=== PATIENT | female | born 2000 | race Caucasian/White ===

== ENCOUNTER 2021-02-07 09:51 | Observation (INO) ==
[2021-02-07] MEDS ORDERED: Doxycycline 100 MG in 0.9 % Sodium Chloride Mini Bag 100 ML IVPB ONE (10:38)
[2021-02-07] MEDS ORDERED: 0.9 % Sodium Chloride 1,000 ML IVC SCH (10:45)
[2021-02-07 10:50] LABS: Basophils % 0.3 %; Eosinophils # 0.1 K/mcL (0.0-0.6); Eosinophils % 0.7 %; Hematocrit 37.4 % (35.3-44.9); Hemoglobin 12.8 g/dL (11.5-15.4); Immature Granulocytes % 0.3 % (0-4); Lymphocytes # 1.6 K/mcL (0.6-4.6); Lymphocytes % 21.2 %; Mean Corpuscular HGB Conc 34.2 g/dL (31.6-35.5); Mean Corpuscular Hemoglobin 28.8 pg (28.0-33.3); Mean Platelet Volume 10.1 fL (9.4-12.4); Monocytes # 0.7 K/mcL (0.0-1.3); Monocytes % 8.9 %; Neutrophils # 5.1 K/mcL (1.6-8.9); Platelet Count 229 K/mcL (140-400); Red Blood Count 4.45 M/mcL (3.82-4.97); Red Cell Distribution Width 13.2 % (11.5-14.5); Segmented Neutrophils % 68.6 %; White Blood Count 7.4 K/mcL (4.3-11.1)
[2021-02-07 11:02] LABS: Amphetamine Screen,Urine Negative ng/mL (Cutoff=1000); Barbiturate Screen,Urine Negative ng/mL (Cutoff=200); Benzodiazepines Screen,Urine Negative ng/mL (Cutoff=200); Cannabinoid Screen,Urine Negative ng/mL (Cutoff = 50); Cocaine Screen,Urine Negative ng/mL (Cutoff= 300); Opiate Screen,Urine Negative ng/mL (Cutoff=300); Phencyclidine Screen,Urine Negative ng/mL (Cutoff=25)
[2021-02-07] MEDS ORDERED: Ondansetron 4 MG/2 ML VIAL IVP PRN (12:10)
[2021-02-07] MEDS ORDERED: *HR* OxyCODONE Immed Rel 5 MG TABLET PO PRN (12:10)
[2021-02-07] MEDS ORDERED: *HR* Propofol 200 MG/20 ML VIAL IVP ONE (12:14)
[2021-02-07] MEDS ORDERED: Acetaminophen IV 1,000 MG/100 ML BAG IVPB ONE (12:15)
[2021-02-07] MEDS ORDERED: *HR* FentaNYL (PF) 100 MCG/2 ML VIAL ONE (12:15)
[2021-02-07] MEDS ORDERED: *HR* Midazolam HCl 2 MG/2 ML VIAL ONE (12:15)
[2021-02-07] MEDS ORDERED: Ketorolac 30 MG/ML VIAL ONE (12:16)
[2021-02-07] MEDS ORDERED: Ondansetron 4 MG/2 ML VIAL ONE (12:16)
[2021-02-07] MEDS ORDERED: miSOPROStoL 100 MCG TABLET RC STA (13:10)
[2021-02-07] MEDS ORDERED: Methylergonovine 0.2 MG/ML AMPUL IM ONE (13:10)
[2021-02-07] MEDS ORDERED: Ringers Solution, Lactated 1,000 ML ONE (13:41)
[2021-02-07 14:50] VITALS: BP 127/65
== END 2021-02-07 17:52 | disposition home or self-care (01) ==
LOC: 1NENULAB 09:51 → SAMDAY 09:51 → 1NENULAB 09:54
PROVIDERS: ADMIT Obstetrics & Gynecology; ATTEND Obstetrics & Gynecology